=== PATIENT | female | born 1960 | race Caucasian/White ===

== ENCOUNTER 2018-02-03 11:11 | Day surgery (SDC) | payer MEDICARE, BC ==
[2018-02-03] MEDS ORDERED: PROPOFOL 60 ML (13:40)
[2018-02-03] MEDS ORDERED: LIDOCAINE 2% (SDV) 5 ML INJ (13:40)
== END 2018-02-03 19:13 | disposition home or self-care (01) ==
LOC: GIL 11:11
DX: R12 Heartburn (principal); K44.9 Diaphragmatic hernia without obstruction or gangrene; K21.9 Gastro-esophageal reflux disease without esophagitis; K29.60 Other gastritis without bleeding; K64.8 Other hemorrhoids; E11.9 Type 2 diabetes mellitus without complications; I10 Essential (primary) hypertension; M06.9 Rheumatoid arthritis, unspecified
CPT/HCPCS: 43239; 82962; 87081; 88305